=== PATIENT | male | born 1950 | race Caucasian/White ===

== ENCOUNTER → 2020-09-05 | Emergency (ER) | payer OTHER ==
[~2020-09-05] VITALS: Ht 162.6 cm; Wt 60.3 kg
[~2020-09-05] MED LIST: AIRBORNE EFFER1 EACH PO; CALTRATE 600 +1 EACH; CARDURA1 MG PO; HORIZANT300 MG PO; IBUPROFEN600 MG PO; KEFLEX500 MG PO; MUCINEX DM ER1 EAC1 PO; OSEL75CA PO; PREVACID30 M1 PO; PRILOSEC OTC20 MG; TAMSULOSIN HCL0.4 MG PO; ULTRACET PO; VALACYCLOVIR1000 MG PO; ZESTRIL30 MG
== END | disposition home or self-care (01) ==
LOC: ER 08:43
DX: B02.9 Zoster without complications (principal)

== ENCOUNTER 2021-11-19 07:50 | Outpatient (CLI) | payer OTHER | END 2021-11-19 07:55 | disposition home or self-care (01) | LOC: RX STUDY 07:50 | PROVIDERS: ATTEND Internal Medicine Gastroenterology | DX: R13.10 Dysphagia, unspecified (principal) ==

== ENCOUNTER 2022-05-21 07:14 | Emergency (ER) | payer OTHER ==
[~2022-05-21] VITALS: Ht 165.1 cm; Wt 59.0 kg
[2022-05-21] MEDS ORDERED: COZAAR100 MG PO (07:25)
[2022-05-21] MEDS ORDERED: PREVACID30 M1 PO (07:25)
[2022-05-21] MEDS ORDERED: ULTRAM50 MG PO (11:58)
[2022-05-21] MEDS ORDERED: TAMS0.4C PO (11:58)
== END 2022-05-21 12:08 ==
LOC: ER 07:14
DX: N20.0 Calculus of kidney (principal); I10 Essential (primary) hypertension; Z87.442 Personal history of urinary calculi; Z91.013 Allergy to seafood

== ENCOUNTER 2022-12-09 08:15 | Emergency (ER) | payer OTHER ==
[~2022-12-09] VITALS: Ht 162.6 cm; Wt 57.2 kg
[~2022-12-09 08:15] MED LIST changes: +COZAAR100 MG PO; +TAMS0.4C PO; +ULTRAM50 MG PO
== END 2022-12-09 11:26 | disposition home or self-care (01) ==
LOC: ER 08:15
DX: U07.1 COVID-19 (principal); Z91.013 Allergy to seafood

== ENCOUNTER 2023-02-25 12:11 | Outpatient (CLI) | payer OTHER | END 2023-02-25 12:15 | disposition home or self-care (01) | LOC: TOM 12:11 | PROVIDERS: ATTEND Internal Medicine Pulmonary Disease | DX: R06.02 Shortness of breath (principal); U09.9 Post COVID-19 condition, unspecified; J44.1 Chronic obstructive pulmonary disease with (acute) exacerbation | CPT/HCPCS: 71260; Q9965 ==